=== PATIENT | male | born 1965 | race African-American/Black ===

== ENCOUNTER 2019-04-29 08:52 | Day surgery (SDC) | payer BC ==
[~2019-04-29] VITALS: Ht 180.3 cm; Wt 135.6 kg
[2019-04-29] VITALS (14 sets, daily range): BP systolic 131–160; BP diastolic 71–81; PULSE 69–96; RESP 14–29; Ht 180.3 cm; Wt 135.6 kg
[~2019-04-29 08:52] MED LIST: AMLO-218 PO; ATOR10TA65 PO; DYAZIDE PO; FLUO20CA22 PO; LEVO50TA71 PO; MONT10TA24 PO
[2019-04-29] MEDS ORDERED: LACTATED RINGER'S 1,000 ML IV SCH (10:00)
[2019-04-29] MEDS ORDERED: MIDAZOLAM 1 MG/ML 2 ML INJ ONE (12:03)
[2019-04-29] MEDS ORDERED: ROPIVACAINE 0.5 % 30 ML VIAL ONE ×2 (12:04→15:48)
[2019-04-29] MEDS ORDERED: LIDOCAINE 2% (SDV) 5 ML INJ ONE (13:16)
[2019-04-29] MEDS ORDERED: PROPOFOL 20 ML ONE ×3 (13:16→15:32)
[2019-04-29] MEDS ORDERED: CEFAZOLIN 1 GM INJ ONE ×2 (13:37→16:44)
[2019-04-29] MEDS ORDERED: SUCCINYLCHOLINE CHLORIDE 100 MG/5 ML SYG IV ONE ×2 (13:37→14:05)
[2019-04-29] MEDS ORDERED: ROCURONIUM 50 MG INJ ONE ×2 (13:37→14:31)
[2019-04-29] MEDS ORDERED: DEXAMETHASONE 4 MG/ML 5 ML INJ ONE (13:41)
[2019-04-29] MEDS ORDERED: FAMOTIDINE 20 MG INJ ONE (13:41)
[2019-04-29] MEDS ORDERED: ONDANSETRON 4 MG INJ ONE (13:41)
[2019-04-29] MEDS ORDERED: POVIDONE IODINE 10% 28.4 GM OINT ONE (14:09)
[2019-04-29] MEDS ORDERED: EPINEPHrine 1 MG/ML 30 ML INJ ONE (14:09)
[2019-04-29] MEDS ORDERED: hydrALAzine 20 MG INJ ONE (14:47)
[2019-04-29] MEDS ORDERED: HYDROmorphONE 2 MG/ML SYG ONE (15:49)
[2019-04-29] MEDS ORDERED: OXYCODONE/ACETAMINOPHEN (5/325) TAB PO PRN ×4 (16:00→17:00)
[2019-04-29] MEDS ORDERED: DIPHENHYDRAMINE 50 MG INJ IV PRN (16:00)
[2019-04-29] MEDS ORDERED: MEPERIDINE 25 MG INJ IV PRN (16:00)
[2019-04-29] MEDS ORDERED: FENTAnyl 50 MCG/ML VIAL IV PRN ×2 (16:00)
[2019-04-29] MEDS ORDERED: PROCHLORPERAZINE 10 MG INJ IV PRN (16:00)
[2019-04-29] MEDS ORDERED: ONDANSETRON 4 MG INJ IV PRN ×2 (16:00→17:00)
[2019-04-29] MEDS ORDERED: HYDROmorphONE 1 MG/5 ML IV SYRINGE IV PRN ×3 (16:00)
[2019-04-29] MEDS ORDERED: LABETALOL HCL 20MG INJ ONE (16:18)
[2019-04-29] MEDS ORDERED: SOD CHLORIDE 0.9% 1,000 ML IV SCH (16:33)
[2019-04-29] MEDS ORDERED: SUGAMMADEX SODIUM 200 MG/2 ML VIAL IV ONE (16:41)
[2019-04-29] MEDS ORDERED: morphine 2 MG INJ IV PRN (17:00)
== END 2019-04-29 18:30 | disposition home or self-care (01) ==
LOC: SDS 08:52
PROVIDERS: ATTEND Orthopaedic Surgery
DX: M25.811 Other specified joint disorders, right shoulder (principal); M65.811 Other synovitis and tenosynovitis, right shoulder; M94.211 Chondromalacia, right shoulder; M19.011 Primary osteoarthritis, right shoulder; M75.101 Unspecified rotator cuff tear or rupture of right shoulder, not specified as traumatic; E11.9 Type 2 diabetes mellitus without complications; I10 Essential (primary) hypertension; J45.909 Unspecified asthma, uncomplicated; E78.5 Hyperlipidemia, unspecified; E66.01 Morbid (severe) obesity due to excess calories; Z68.42 Body mass index [BMI] 45.0-49.9, adult
CPT/HCPCS: 29823; 29824; 82962; J0171; J0360; J0690; J1100; J1170; J2250; J2405; J2795; J3010